=== PATIENT | female | born 1935 | race Caucasian/White ===

== ENCOUNTER 2023-12-26 13:24 | Emergency (ER) | payer BC ==
[~2023-12-26 13:24] MED LIST: Iopamidol 370 76% 100 ML VIAL ONE
[2023-12-26] MEDS ORDERED: Ondansetron PF 4 MG/2 ML Vial ONE (13:42)
[2023-12-26 14:28] LABS: ALT (SGPT) 11 U/L (8-55); AST (SGOT) 11 U/L (5-34); Alkaline Phosphatase 57 U/L (40-110); Anion Gap 18 mmol/L (10-20); BUN (Urea Nitrogen) 11 mg/dL (9.8-20.1); Bilirubin, Total 0.8 mg/dL (0.2-1.2); Calc. Creatinine Clearance 0 mL/min (70-130); Calcium 8.9 mg/dL (7.8-10.44); Carbon Dioxide 18 mmol/L (23-31); Chloride 101 mmol/L (98-107); Estimated GFR 70; Globulin 2.4 g/dL (2.4-3.5); Glucose 223 mg/dL (83-110); Potassium 2.9 mmol/L (3.5-5.1); Protein, Total 6.4 g/dL (5.8-8.1); Sodium 134 mmol/L (136-145)
[2023-12-26 14:29] LABS: Troponin I Less than 0.010 ng/mL (< 0.028)
[2023-12-26 14:32] LABS: Hemoglobin 13.4 g/dL (12.0-16.0); Lymphocytes 45 % (21-51); MDiff Complete? YES; Mean Corpuscular HGB CONC 33.5 g/dL (32.0-36.0); Mean Corpuscular Hemoglobin 29.7 pg (27.0-31.0); Mean Corpuscular Volume 88.7 fl (78.0-98.0); Mean Platelet Volume 7.5 fL (7.4-10.4); Monocytes 2 % (0-10); Neutrophil 53 % (42-75); Platelet Count 317 10x3/uL (130-400); RBC Distribution Width 11.8 % (11.5-14.5); Red Blood Cell (RBC) Count 4.51 mill/uL (4.20-5.40); White Blood Cell (WBC) Count 18.4 10x3/uL (4.8-10.8)
[2023-12-26 14:33] LABS: Manual Diff?? YES; Platelet Adequacy Comment Appears Adequate; RBC Morph Comment Within Normal Limits
[2023-12-26] MEDS ORDERED: Potassium Chloride 20 MEQ TAB ONE (15:16)
[2023-12-26] MEDS ORDERED: Sodium Chloride 0.9% 1,000 ML ONE (15:17)
[2023-12-26] MEDS ORDERED: Acetaminophen 325 MG TAB ONE (15:17)
[2023-12-26] MEDS ORDERED: Piperacillin/Tazobactam 3.375 GM VIAL ONE (16:06)
[2023-12-26] MEDS ORDERED: Sodium Chloride 0.9% 100 ML ONE (16:06)
[2023-12-26 16:38] LABS: Bilirubin Negative (Negative); Blood, Urine Trace (Negative); Glucose, Urine (Dipstick) 100 mg/dL (Negative); Ketone, Urine 15 mg/dL (Negative); Leukocyte Trace (Negative); Nitrite Negative (Negative); Protein, Urine (Dipstick) Negative (Neg-Trace); Specific Gravity, Urine 1.015 (1.005-1.030); Urobilinogen 0.2 mg/dL (Less than 2)
[2023-12-26 16:39] LABS: Clarity Clear (Clear)
[2023-12-26] MEDS ORDERED: Aspirin Chewable 81 MG TAB ONE (16:47)
[2023-12-26 16:52] LABS: Bacteria/HPF Rare-Few HPF (None Seen); CAUTI Indications for Culture Dysuria,urgency,freq; RBC/HPF 0-3 HPF (0-3); Squamous Epithelial 0-3 HPF (0-3); WBC/HPF 0-3 HPF (0-3)
[2023-12-26 16:53] LABS: Urine Culture Reflex No No
== END 2023-12-26 18:54 | disposition short-term general hospital (02) ==
LOC: MADERS 13:24
DX: K55.059 Acute (reversible) ischemia of intestine, part and extent unspecified (principal); E11.9 Type 2 diabetes mellitus without complications; I10 Essential (primary) hypertension; Z79.899 Other long term (current) drug therapy
CPT/HCPCS: 36415; 71045; 74177; 80053; 81001; 83605; 83880; 84484; 85025; 93005; 96365; 96375; J2405; J2543; J7030; Q9967